=== PATIENT | female | born 1965 | race Asian ===

== ENCOUNTER 2018-01-17 06:13 | Day surgery (SDC) | payer MEDICAID ==
[~2018-01-17] VITALS: Ht 147.3 cm; Wt 70.9 kg
[~2018-01-17 06:13] MED LIST: CYCLOPENTOLATE HCL 1% 2 ML OPHTHALMIC SOLUTION ONE; FLURBIPROFEN SODIUM 0.03% 2.5 ML OPHTHALMIC SOLUTION ONE; PHENYLEPHRINE HCL 2.5% 2 ML OPHTHALMIC SOLUTION ONE; RINGERS SOLUTION,LACTATED 500 ML IV ONE; TROPICAMIDE 1% 2 ML OPHTHALMIC SOLUTION ONE
[2018-01-17] MEDS ORDERED: MIDAZOLAM HCL 2 MG/2 ML VIAL IVP ONE (06:14)
[2018-01-17] MEDS ORDERED: FentaNYL CITRATE-PF 100 MCG/2 ML VIAL IVP ONE (06:14)
[2018-01-17] MEDS ORDERED: LISI-662 PO (06:41)
[2018-01-17] MEDS ORDERED: RANI150T7 PO (06:41)
[2018-01-17] MEDS ORDERED: AMLO-512 PO (06:41)
[2018-01-17] MEDS ORDERED: INSLAN SQ (06:41)
[2018-01-17] MEDS ORDERED: METF500T4 PO (06:41)
[2018-01-17] MEDS ORDERED: GABA-531 PO (06:41)
[2018-01-17] MEDS ORDERED: ASPI-1182 PO (06:41)
[2018-01-17] MEDS ORDERED: INSU100V SQ (06:42)
[2018-01-17] MEDS ORDERED: ATOR40TA28 PO (06:42)
[2018-01-17] MEDS: TROPICAMIDE 1% 2 ML OPHTHALMIC SOLUTION OS SCH ×3 (07:03→07:14)
[2018-01-17] MEDS: CYCLOPENTOLATE HCL 1% 2 ML OPHTHALMIC SOLUTION OS SCH ×3 (07:03→07:13)
[2018-01-17] MEDS: PHENYLEPHRINE HCL 2.5% 2 ML OPHTHALMIC SOLUTION OS SCH ×3 (07:03→07:13)
[2018-01-17] MEDS: FLURBIPROFEN SODIUM 0.03% 2.5 ML OPHTHALMIC SOLUTION OS SCH ×3 (07:03→07:13)
[2018-01-17 07:28] LABS: GLUCOMETER DEV NAME(LOC) SDS 5; GLUCOSE,POINT OF CARE 141 MG/DL (70-110)
== END 2018-01-17 09:20 | disposition home or self-care (01) ==
LOC: SURGERY 06:13
PROVIDERS: ATTEND Ophthalmology
DX: E11.36 Type 2 diabetes mellitus with diabetic cataract (principal); H25.812 Combined forms of age-related cataract, left eye; I10 Essential (primary) hypertension; E78.00 Pure hypercholesterolemia, unspecified; E66.3 Overweight; K21.9 Gastro-esophageal reflux disease without esophagitis; Z79.82 Long term (current) use of aspirin; Z79.4 Long term (current) use of insulin; Z79.84 Long term (current) use of oral hypoglycemic drugs; Z79.899 Other long term (current) drug therapy; Z98.890 Other specified postprocedural states; Z68.32 Body mass index [BMI] 32.0-32.9, adult
CPT/HCPCS: 66984; 82962; 93005; C1780; J2250; J3010; J7120

== ENCOUNTER 2018-03-21 05:47 | Day surgery (SDC) | payer MEDICAID ==
[~2018-03-21] VITALS: Ht 147.3 cm; Wt 70.9 kg
[~2018-03-21 05:47] MED LIST changes: +AMLO-512 PO; +ASPI-1182 PO; +ATOR40TA28 PO; +GABA-531 PO; +INSLAN SQ; +INSU100V SQ; +LISI-662 PO; +METF500T6 PO; +RANI150T7 PO
[2018-03-21] MEDS ORDERED: RINGERS SOLUTION,LACTATED 500 ML IV ONE (06:00)
[2018-03-21] MEDS: PHENYLEPHRINE HCL 2.5% 2 ML OPHTHALMIC SOLUTION OD SCH ×3 (06:30→06:46)
[2018-03-21] MEDS: TROPICAMIDE 1% 2 ML OPHTHALMIC SOLUTION OD SCH ×3 (06:30→06:46)
[2018-03-21] MEDS: FLURBIPROFEN SODIUM 0.03% 2.5 ML OPHTHALMIC SOLUTION OD SCH ×3 (06:30→06:46)
[2018-03-21] MEDS: CYCLOPENTOLATE HCL 1% 2 ML OPHTHALMIC SOLUTION OD SCH ×3 (06:30→06:46)
[2018-03-21 06:34] LABS: GLUCOMETER DEV NAME(LOC) SDS 5; GLUCOSE,POINT OF CARE 129 MG/DL (70-110)
[2018-03-21] MEDS ORDERED: FentaNYL CITRATE-PF 100 MCG/2 ML VIAL IVP ONE (12:00)
[2018-03-21] MEDS ORDERED: MIDAZOLAM HCL 2 MG/2 ML VIAL IVP ONE (12:00)
[2018-03-21] MEDS ORDERED: ACETYLCHOLINE CHLORIDE 1 EA INTRAOCULAR SOLUTION KIT IO ONE (16:24)
[2018-03-21] MEDS ORDERED: TETRACAINE HCL VISCOUS 0.5% 0.6 ML OPHTHALMIC SOLUTION ONE (16:24)
[2018-03-21] MEDS ORDERED: NEOMYCIN/POLYMYXIN B/DEXAMETH 3.5 GM OPHTHALMIC OINTMENT ONE (16:24)
[2018-03-21] MEDS ORDERED: LIDOCAINE HCL/PF 1% 2 ML VIAL ONE (16:24)
[2018-03-21] MEDS ORDERED: HYALURONATE SOD/CHONDROITIN SOD 0.5 ML VIAL IO ONE (16:24)
[2018-03-21] MEDS ORDERED: POVIDONE-IODINE 10% 15 ML SOLUTION UD ONE (16:24)
[2018-03-21] MEDS ORDERED: HYALURONATE SODIUM 12 MG/ML 0.8 ML SYRINGE IO ONE (16:24)
[2018-03-21] MEDS ORDERED: MethylPREDNISolone SOD SUCC 40 MG/ML VIAL ONE (16:24)
== END 2018-03-21 09:35 | disposition home or self-care (01) ==
LOC: SURGERY 05:47
PROVIDERS: ATTEND Ophthalmology
DX: E11.36 Type 2 diabetes mellitus with diabetic cataract (principal); H25.811 Combined forms of age-related cataract, right eye; I10 Essential (primary) hypertension; E78.00 Pure hypercholesterolemia, unspecified; E66.9 Obesity, unspecified; K21.9 Gastro-esophageal reflux disease without esophagitis; E78.5 Hyperlipidemia, unspecified; Z79.82 Long term (current) use of aspirin; Z68.32 Body mass index [BMI] 32.0-32.9, adult; Z98.42 Cataract extraction status, left eye; Z79.4 Long term (current) use of insulin; Z79.84 Long term (current) use of oral hypoglycemic drugs; Z79.891 Long term (current) use of opiate analgesic; Z79.899 Other long term (current) drug therapy; Z98.890 Other specified postprocedural states
CPT/HCPCS: 36415; 66984; 82962; 84703; 93005; C1780; J2250; J3010; J7120; J2920; J3490

== ENCOUNTER 2019-01-18 06:07 | Emergency (ER) | payer MEDICAID ==
[~2019-01-18] VITALS: Ht 149.9 cm; Wt 70.5 kg
[~2019-01-18 06:07] MED LIST changes: -CYCLOPENTOLATE HCL 1% 2 ML OPHTHALMIC SOLUTION ONE; -FLURBIPROFEN SODIUM 0.03% 2.5 ML OPHTHALMIC SOLUTION ONE; +METF-960 PO; -METF500T6 PO; -PHENYLEPHRINE HCL 2.5% 2 ML OPHTHALMIC SOLUTION ONE; -RINGERS SOLUTION,LACTATED 500 ML IV ONE; -TROPICAMIDE 1% 2 ML OPHTHALMIC SOLUTION ONE
[2019-01-18 06:50] LABS: BASOPHILS % (AUTO) 0.6 % (0.0-2.0); EOSINOPHILS % (AUTO) 4.5 % (1.0-6.0); HEMATOCRIT 38.2 % (36-46); HEMOGLOBIN 12.1 g/dL (12.0-16.0); LYMPHOCYTES # (AUTO) 2.5 K/uL (1.0-4.8); LYMPHOCYTES % (AUTO) 34.2 % (22.0-44.0); MEAN CORPUSCULAR HEMOGLOBIN 23.4 pg (26.0-34.0); MEAN CORPUSCULAR HGB CONC 31.8 G/dL (31.0-37.0); MEAN CORPUSCULAR VOLUME 74 fL (80-100); MONOCYTES # (AUTO) 0.7 K/uL (0.1-1.0); MONOCYTES % (AUTO) 9.9 % (2.0-9.0); NEUTROPHILS # (AUTO) 3.8 K/uL (1.8-7.7); NEUTROPHILS % (AUTO) 50.8 % (40.0-70.0); PLATELET COUNT (AUTO) 293 K/uL (150-450); RED BLOOD CELL COUNT(AUTO) 5.19 MIL/uL (4.00-5.20); RED CELL DISTRIBUTION WIDTH 15.5 % (11.5-14.5)
[2019-01-18 07:05] LABS: ANION GAP 9 mmol/L (8-16); CALCIUM, TOTAL 9.5 mg/dL (8.8-10.5); CARBON DIOXIDE 28 mmol/L (22-29); CHLORIDE 100 mmol/L (98-107); CREATININE 0.89 mg/dL (0.60-1.30); GLOMERULAR FILTR. RATE CALC > 60 mL/min (>60); GLUCOSE,RANDOM 223 mg/dL (70-110); POTASSIUM 4.2 mmol/L (3.5-5.1); SODIUM SERUM 137 mmol/L (136-145); UREA NITROGEN, BLOOD 13 mg/dL (7-18)
[2019-01-18 07:11] LABS: ALANINE AMINOTRANSFERASE 33 U/L (12-78); ALBUMIN 3.4 g/dL (3.4-5.0); ALKALINE PHOSPHATASE 74 U/L (46-116); ASPARTATE AMINOTRANSFERASE 18 U/L (15-37); BILIRUBIN,TOTAL 0.2 mg/dL (0.1-1.0); TOTAL PROTEIN, SERUM 7.5 g/dL (6.4-8.2)
[2019-01-18 07:19] LABS: B-TYPE NATRIURETIC PEPTIDE 6 pg/mL (0-100)
[2019-01-18] MEDS ORDERED: PB/HYOSCY/ATR/SCOP/LIDO/MAALOX 55 ML BOTTLE PO ONE (07:45)
[2019-01-18 07:55] LABS: INFLUENZA TYPE A NEGATIVE FOR TYPE A (NEGATIVE); INFLUENZA TYPE B NEGATIVE FOR TYPE B (NEGATIVE)
[2019-01-18] MEDS ORDERED: IOVERSOL 320 MG/ML 100 ML VIAL ONE (08:59)
[2019-01-18] MEDS ORDERED: SODIUM CHLORIDE 0.9% 100 ML ONE (08:59)
[2019-01-18] MEDS ORDERED: KETOROLAC TROMETHAMINE 30 MG/ML VIAL IVP ONE (09:00)
[2019-01-18 09:09] LABS: GLUCOSE,POINT OF CARE 198 MG/DL (70-110)
[2019-01-18] MEDS ORDERED: KETOROLAC TROMETHAMINE 60 MG/2 ML VIAL IM ONE (09:15)
[2019-01-18 09:55] VITALS: BP 136/80
== END 2019-01-18 10:05 | disposition home or self-care (01) ==
LOC: EMS 06:07
DX: J02.9 Acute pharyngitis, unspecified (principal); J06.9 Acute upper respiratory infection, unspecified; R07.89 Other chest pain; E66.9 Obesity, unspecified; E11.9 Type 2 diabetes mellitus without complications; E78.00 Pure hypercholesterolemia, unspecified; I10 Essential (primary) hypertension; Z68.31 Body mass index [BMI] 31.0-31.9, adult; Z90.710 Acquired absence of both cervix and uterus; Z79.899 Other long term (current) drug therapy; Z79.84 Long term (current) use of oral hypoglycemic drugs; Z79.4 Long term (current) use of insulin; Z79.82 Long term (current) use of aspirin
CPT/HCPCS: 36415; 71046; 80053; 82962; 83880; 84484; 85025; 87430; 87804; 93005; 96372; 99284; J1885; J7050; Q9967

== ENCOUNTER 2019-07-20 11:19 | Emergency (ER) | payer MEDICAID ==
[~2019-07-20] VITALS: Ht 149.9 cm; Wt 66.8 kg
[~2019-07-20 11:19] MED LIST changes: -AMLO-512 PO; +AMLO10TA7 PO
[2019-07-20] MEDS ORDERED: GuaiFENesin SR 600 MG ER TABLET PO ONE (13:15)
[2019-07-20] MEDS ORDERED: BENZONATATE 100 MG CAPSULE PO ONE (13:15)
[2019-07-20] MEDS ORDERED: ALBUTEROL SULFATE HFA 90 MCG/PUFF 8 GM INHALER IH ONE (13:15)
[2019-07-20 13:34] LABS: BASOPHILS % (AUTO) 0.6 % (0.0-2.0); EOSINOPHILS % (AUTO) 4.4 % (1.0-6.0); HEMOGLOBIN 12.3 g/dL (12.0-16.0); LYMPHOCYTES # (AUTO) 3.5 K/uL (1.0-4.8); LYMPHOCYTES % (AUTO) 37.5 % (22.0-44.0); MEAN CORPUSCULAR HGB CONC 32.5 G/dL (31.0-37.0); MEAN CORPUSCULAR VOLUME 74 fL (80-100); MONOCYTES # (AUTO) 0.5 K/uL (0.1-1.0); MONOCYTES % (AUTO) 5.7 % (2.0-9.0); NEUTROPHILS # (AUTO) 4.8 K/uL (1.8-7.7); NEUTROPHILS % (AUTO) 51.8 % (40.0-70.0); PLATELET COUNT (AUTO) 331 K/uL (150-450); RED BLOOD CELL COUNT(AUTO) 5.15 MIL/uL (4.00-5.20); RED CELL DISTRIBUTION WIDTH 14.7 % (11.5-14.5)
[2019-07-20 13:46] LABS: ANION GAP 6 mmol/L (8-16); CALCIUM, TOTAL 8.5 mg/dL (8.8-10.5); CARBON DIOXIDE 30 mmol/L (22-29); CHLORIDE 103 mmol/L (98-107); CREATININE 0.79 mg/dL (0.60-1.30); GLOMERULAR FILTR. RATE CALC > 60 mL/min (>60); GLUCOSE,RANDOM 234 mg/dL (70-110); POTASSIUM 4.1 mmol/L (3.5-5.1); SODIUM SERUM 139 mmol/L (136-145); UREA NITROGEN, BLOOD 9 mg/dL (7-18)
[2019-07-20 13:52] LABS: ALANINE AMINOTRANSFERASE 33 U/L (12-78); ALBUMIN 3.2 g/dL (3.4-5.0); ALKALINE PHOSPHATASE 76 U/L (46-116); ASPARTATE AMINOTRANSFERASE 20 U/L (15-37); BILIRUBIN,TOTAL 0.3 mg/dL (0.1-1.0); TOTAL PROTEIN, SERUM 6.9 g/dL (6.4-8.2)
[2019-07-20 14:00] LABS: B-TYPE NATRIURETIC PEPTIDE < 5 pg/mL (0-100)
[2019-07-20 14:42] LABS: GLUCOSE,POINT OF CARE 217 MG/DL (70-110)
[2019-07-20 15:17] LABS: GLUCOSE,POINT OF CARE 156 MG/DL (70-110)
[2019-07-20 15:27] VITALS: BP 121/77
== END 2019-07-20 15:27 | disposition home or self-care (01) ==
LOC: EMS 11:20
DX: J40 Bronchitis, not specified as acute or chronic (principal); I10 Essential (primary) hypertension; E11.9 Type 2 diabetes mellitus without complications; E78.00 Pure hypercholesterolemia, unspecified; Z79.4 Long term (current) use of insulin; Z79.82 Long term (current) use of aspirin; Z79.899 Other long term (current) drug therapy
CPT/HCPCS: 93005; 94640; J3535

== ENCOUNTER 2023-12-06 10:06 | Emergency (ER) | payer MEDICAID ==
[~2023-12-06] VITALS: Ht 149.9 cm; Wt 65.9 kg
[~2023-12-06 10:06] MED LIST changes: +AMLO-258 PO; -AMLO10TA7 PO; -ASPI-1182 PO; +ASPI-1444 PO; +GABA-1181 PO; -GABA-531 PO; -LISI-662 PO; +LISI-894 PO; +METF-1211 PO; -METF-960 PO
[2023-12-06] MEDS ORDERED: NALOXONE HCL 1 MG/ML 2 ML SYRINGE ONE (10:09)
[2023-12-06 10:11] VITALS: TEMP 99
[2023-12-06 10:57] LABS: BASOPHILS % (AUTO) 0.7 % (0.0-2.0); HEMATOCRIT 42.2 % (36-46); HEMOGLOBIN 13.9 g/dL (12.0-16.0); LYMPHOCYTES # (AUTO) 2.9 K/uL (1.0-4.8); LYMPHOCYTES % (AUTO) 26.9 % (22.0-44.0); MEAN CORPUSCULAR HEMOGLOBIN 25.6 pg (26.0-34.0); MEAN CORPUSCULAR VOLUME 78 fL (80-100); MONOCYTES # (AUTO) 0.5 K/uL (0.1-1.0); MONOCYTES % (AUTO) 4.6 % (2.0-9.0); NEUTROPHILS # (AUTO) 7.2 K/uL (1.8-7.7); NEUTROPHILS % (AUTO) 66.8 % (40.0-70.0); PLATELET COUNT (AUTO) 331 K/uL (150-450); RED BLOOD CELL COUNT(AUTO) 5.45 MIL/uL (4.00-5.20); RED CELL DISTRIBUTION WIDTH 14.7 % (11.5-14.5); WHITE BLOOD COUNT (AUTO) 10.8 K/uL (4.5-11.0)
[2023-12-06 11:15] LABS: CALCIUM, TOTAL 9.8 mg/dL (8.8-10.5); CREATININE 0.97 mg/dL (0.60-1.30); POTASSIUM 3.9 mmol/L (3.5-5.1)
[2023-12-06 11:20] LABS: ALBUMIN 3.7 g/dL (3.4-5.0); BILIRUBIN,TOTAL 0.5 mg/dL (0.1-1.0); TOTAL PROTEIN, SERUM 8.4 g/dL (6.4-8.2)
[2023-12-06] MEDS: SODIUM CHLORIDE 0.9% 1,000 ML IV ONE (11:23)
[2023-12-06] MEDS: ONDANSETRON HCL 4 MG/2 ML VIAL IVP ONE (11:24)
[2023-12-06 11:45] LABS: RBC MORPHOLOGY COMMENT ABNORMAL RBC MORPH
[2023-12-06 14:15] VITALS: BP 144/76; PULSE 88; RESP 16
== END 2023-12-06 14:16 | disposition home or self-care (01) ==
LOC: EMS 10:12
DX: R11.2 Nausea with vomiting, unspecified (principal); E11.9 Type 2 diabetes mellitus without complications; E78.00 Pure hypercholesterolemia, unspecified; I10 Essential (primary) hypertension; Z90.710 Acquired absence of both cervix and uterus
CPT/HCPCS: 99283; 96374; 96361; 80053; 82962; 83690; 85025; 36415; J2405; J7030; J2310

== ENCOUNTER → 2024-06-22 | Emergency (ER) | payer MEDICAID ==
[~2024-06-22] VITALS: Ht 149.9 cm; Wt 65.9 kg
[2024-06-22 17:49] VITALS: BP 125/64; PULSE 97; RESP 20; TEMP 98.9; O2SAT 100
[2024-06-22 17:57] LABS: COVID AG,FIA SOURCE NASAL SWAB
[2024-06-22 18:11] LABS: GLUCOMETER DEV NAME(LOC) ER.7; GLUCOSE,POINT OF CARE 390 MG/DL (70-110)
[2024-06-22 18:16] LABS: INFLUENZA TYPE A NEGATIVE FOR TYPE A (NEGATIVE); INFLUENZA TYPE B NEGATIVE FOR TYPE B (NEGATIVE); SARS-COV2 (COVID) ANTIGEN,FIA Negative (Negative)
== END | disposition still patient (30) ==
LOC: EMS 17:33
DX: R51.9 Headache, unspecified (principal); R05.9 Cough, unspecified; Z53.21 Procedure and treatment not carried out due to patient leaving prior to being seen by health care provider; Z20.822 Contact with and (suspected) exposure to COVID-19
CPT/HCPCS: 82962; 87804

== ENCOUNTER 2025-06-09 08:43 | Emergency (ER) | payer MEDICAID ==
[~2025-06-09] VITALS: Ht 147.3 cm; Wt 70.5 kg
[~2025-06-09 08:43] MED LIST changes: -ASPI-1444 PO; -LISI-894 PO; -RANI150T7 PO
[2025-06-09 09:12] VITALS: TEMP 100.4
[2025-06-09 09:35] LABS: GLUCOMETER DEV NAME(LOC) ER.7; GLUCOSE,POINT OF CARE 127 MG/DL (70-110)
[2025-06-09 10:17] LABS: COVID AG,FIA SOURCE NASAL SWAB
[2025-06-09] MEDS: OXYMETAZOLINE HCL 0.05% 15 ML NASAL SPRAY NASAL ONE (10:35)
[2025-06-09] MEDS: ACETAMINOPHEN 325 MG TABLET PO ONE (10:35)
[2025-06-09 10:54] LABS: INFLUENZA TYPE A NEGATIVE FOR TYPE A (NEGATIVE); INFLUENZA TYPE B NEGATIVE FOR TYPE B (NEGATIVE); SARS-COV2 (COVID) ANTIGEN,FIA Negative (Negative)
[2025-06-09 11:10] VITALS: BP 148/87; PULSE 97; RESP 18; O2SAT 99
[2025-06-09] MEDS ORDERED: AMOX500C2 PO (11:18)
== END 2025-06-09 11:38 | disposition home or self-care (01) ==
LOC: EMS 08:45
DX: J32.9 Chronic sinusitis, unspecified (principal); E11.9 Type 2 diabetes mellitus without complications; E78.00 Pure hypercholesterolemia, unspecified; I10 Essential (primary) hypertension; Z79.4 Long term (current) use of insulin; Z79.899 Other long term (current) drug therapy; Z90.710 Acquired absence of both cervix and uterus; Z20.822 Contact with and (suspected) exposure to COVID-19
CPT/HCPCS: 71045; 82962; 87804; 99284